=== PATIENT | female | born 1995 | race Caucasian/White ===

== ENCOUNTER 2018-02-04 11:43 | Emergency (ER) | payer MEDICARE ==
[~2018-02-04] VITALS: Ht 160 cm; Wt 54.4 kg
[2018-02-04] MEDS ORDERED: ONDANSETRON HCL INJ 2 MG/ML VIAL IV STA (12:06)
[2018-02-04] MEDS ORDERED: ACETAMINOPHEN/CODEINE 300MG - 30MG TAB PO ONE (12:15)
[2018-02-04 13:12] LABS: BASOPHILS # (AUTO) 0.1 (0.0-0.1); BASOPHILS % 0.8 % (0.0-1.0); EOSINOPHILS # (AUTO) 0.1 (0.0-0.4); EOSINOPHILS % 1.9 % (0.0-6.0); HEMATOCRIT 38.3 % (34.2-44.1); HEMOGLOBIN 12.5 g/dL (12.0-16.0); LYMPHOCYTES # (AUTO) 1.9 (1.0-3.2); LYMPHOCYTES % 32.6 % (18.0-39.1); MEAN CORPUSCULAR HEMOGLOBIN 29.3 pg (28-32); MEAN CORPUSCULAR HGB CONC 32.6 g/dL (31-35); MEAN CORPUSCULAR VOLUME 89.7 fL (81-99); MONOCYTES # (AUTO) 0.5 (0.2-0.8); MONOCYTES % 7.9 % (4.4-11.3); NEUTROPHILS # (AUTO) 3.4 (2.1-6.9); NEUTROPHILS % 56.6 % (38.7-80.0); PLATELET COUNT 267 x10e3/uL (140-360); RED BLOOD COUNT 4.27 x10e6/uL (3.6-5.1); RED CELL DISTRIBUTION WIDTH 12.6 % (11.7-14.4)
[2018-02-04 13:32] LABS: ALANINE AMINOTRANSFERASE 11 IU/L (0-55); ALBUMIN 3.8 g/dL (3.5-5.0); ALBUMIN/GLOBULIN RATIO 1.3 (0.8-2.0); ALKALINE PHOSPHATASE 57 IU/L (40-150); ANION GAP 10.4 mmol/L (8-16); BLOOD UREA NITROGEN 5 mg/dL (7-26); BUN/CREATININE RATIO 8 (6-25); CALCIUM 9.4 mg/dL (8.4-10.2); CARBON DIOXIDE 21 mmol/L (22-29); CHLORIDE 110 mmol/L (98-107); CREATININE, SERUM 0.61 mg/dL (0.57-1.11); EST GLOMERULAR FILTRATION RATE > 60 ML/MIN (60-); GLUCOSE 67 mg/dL (74-118); POTASSIUM 3.4 mmol/L (3.5-5.1); SODIUM 138 mmol/L (136-145)
[2018-02-04 13:39] LABS: HCG,QUANTITATIVE 1759.97 mIU/mL (0-10)
[2018-02-04 13:47] LABS: BILIRUBIN,URINE NEGATIVE (NEGATIVE); CLARITY,URINE CLEAR (CLEAR); COLOR,URINE YELLOW (YELLOW); KETONES,URINE NEGATIVE (NEGATIVE); LEUKOCYTE ESTERASE ,URINE NEGATIVE (NEGATIVE); NITRITE,URINE NEGATIVE (NEGATIVE); PROTEIN,URINE DIPSTICK NEGATIVE (NEGATIVE); URINE UROBILINOGEN 0.2 mg/dL (0.2 - 1)
[2018-02-04 13:57] LABS: BACTERIA,URINE FEW /HPF; EPITHELIAL CELLS,URINE FEW /LPF; WBC,URINE (MAN) 0-5 /HPF (0-5)
[2018-02-04] MEDS ORDERED: ACETAMINOPHEN 325 MG TAB PO ONE (14:00)
--- NOTE | 2018-02-04 14:34 | Diagnostic Imaging Report ---
EXAM: Obstetric Pelvic Ultrasound INDICATION: ^r/o ectopic ^[id number] ^1304 COMPARISON: None TECHNIQUE: Transabdominal and transvaginal evaluation of the pelvis was performed in the transverse and longitudinal planes. CLINICAL HISTORY: 22 year old G2, P1; last menstrual period: 12/28/2017, beta-hCG 1716 FINDINGS: Uterus: Orientation: Anteverted Size: 7.2 x 4.5 x 5.0 cm, normal Mass: None Cervix: Normal Gestational Sac: None visualized. Yolk sac: None visualized. Embryo/Fetus: None visualized. Right ovary Size: 2.4 x 1.4 x 1.6 cm Mass/Cyst: None Left ovary Size: 2.8 x 1.8 x 1.8 cm Mass/Cyst: None Cul-de-sac: Small amount of free fluid in the pelvic cul-de-sac. IMPRESSION: 1. No intrauterine gestational sac or sonographic evidence of ectopic . Findings consistent with of unknown location. Recommend follow-up transvaginal ultrasound in one week. classification: Viable: can potentially result in a liveborn baby Visualized embryo with FHT Nonviable: Findings diagnostic of failure Ectopic CRL >= 7 mm and no FHT MSD >= 25 mm and no embryo No FHT >= 2 weeks after US showed GS w/o YS No FHT >= 11 days after US showed GS w/ YS Intrauterine of uncertain viability: Intrauterine GS with no FHT and no definite findings of failure of unknown location: Positive urine or serum test and no IUP or ectopic on US ?@ Diagnostic Criteria for Nonviable Early in the First Trimester N Engl J Med 2013;369:1443-51. DOI: [id number] Signed by: Dr. Tejas Spencer M.D. on 02/04/2018 2:31 PM
--- NOTE | 2018-03-19 09:45 | Diagnostic Imaging Report ---
EXAM: Obstetric Pelvic Ultrasound INDICATION: ^r/o ectopic ^[id number] ^1304 COMPARISON: None TECHNIQUE: Transabdominal and transvaginal evaluation of the pelvis was performed in the transverse and longitudinal planes. CLINICAL HISTORY: 22 year old G2, P1; last menstrual period: 12/28/2017, beta-hCG 1716 FINDINGS: Uterus: Orientation: Anteverted Size: 7.2 x 4.5 x 5.0 cm, normal Mass: None Cervix: Normal Gestational Sac: None visualized. Yolk sac: None visualized. Embryo/Fetus: None visualized. Right ovary Size: 2.4 x 1.4 x 1.6 cm Mass/Cyst: None Left ovary Size: 2.8 x 1.8 x 1.8 cm Mass/Cyst: None Cul-de-sac: Small amount of free fluid in the pelvic cul-de-sac. IMPRESSION: 1. No intrauterine gestational sac or sonographic evidence of ectopic . Findings consistent with of unknown location. Recommend follow-up transvaginal ultrasound in one week. classification: Viable: can potentially result in a liveborn baby Visualized embryo with FHT Nonviable: Findings diagnostic of failure Ectopic CRL >= 7 mm and no FHT MSD >= 25 mm and no embryo No FHT >= 2 weeks after US showed GS w/o YS No FHT >= 11 days after US showed GS w/ YS Intrauterine of uncertain viability: Intrauterine GS with no FHT and no definite findings of failure of unknown location: Positive urine or serum test and no IUP or ectopic on US ?@ Diagnostic Criteria for Nonviable Early in the First Trimester N Engl J Med 2013;369:1443-51. DOI: [id number] Signed by: Dr. Tejas Spencer M.D. on 02/04/2018 2:31 PM
== END 2018-02-04 14:57 | disposition home or self-care (01) ==
LOC: ER 11:43
DX: O26.891 Other specified pregnancy related conditions, first trimester (principal); R10.32 Left lower quadrant pain
CPT/HCPCS: 36415; 76817; 76830; 80053; 81001; 81025; 84702; 85025; 87086; 99284; J2405